=== PATIENT | male | born 1990 | race Caucasian/White ===

== ENCOUNTER → 2018-06-07 | Outpatient (CLI) | payer OTHER ==
[~2018-06-07] MED LIST: LISI-362 PO
[2018-06-07 14:10] LABS: PLATELET COUNT, AUTOMATED 312 K/uL (150-450)
[2018-06-07 14:31] LABS: LDL CHOLESTEROL 101 mg/dl
== END ==
LOC: LAB 13:35
PROVIDERS: ATTEND Internal Medicine
DX: I10 Essential (primary) hypertension (principal); E66.9 Obesity, unspecified
CPT/HCPCS: 36415; 81001; 82040; 82247; 82310; 82374; 82435; 82465; 82565; 82947; 83718; 84075; 84132; 84155; 84295; 84443; 84450; 84460; 84478; 84520; 85025

== ENCOUNTER → 2018-07-26 | Outpatient (CLI) | payer OTHER ==
[~2018-07-26] MED LIST changes: +VALS160T8 PO; +VALS1TAB4 PO
== END ==
LOC: RESP 20:00
PROVIDERS: ATTEND Internal Medicine
DX: G47.33 Obstructive sleep apnea (adult) (pediatric) (principal)

== ENCOUNTER → 2018-08-23 | Outpatient (CLI) | payer OTHER | LOC: RESP 20:02 | PROVIDERS: ATTEND Internal Medicine | DX: G47.33 Obstructive sleep apnea (adult) (pediatric) (principal) ==

== ENCOUNTER → 2018-09-18 | Outpatient (CLI) | payer OTHER ==
[~2018-09-18] MED LIST changes: +ALLO-119 PO; +AMLO-127 PO; +COLC0.6C3 PO; +VALS320T12 PO
[2018-09-18 16:39] LABS: PLATELET COUNT, AUTOMATED 259 K/uL (150-450)
== END ==
LOC: LAB 16:21
PROVIDERS: ATTEND Internal Medicine
DX: R94.5 Abnormal results of liver function studies (principal); I10 Essential (primary) hypertension; G47.33 Obstructive sleep apnea (adult) (pediatric); E66.9 Obesity, unspecified
CPT/HCPCS: 36415; 80074; 82040; 82247; 82310; 82374; 82435; 82565; 82728; 82947; 83540; 83550; 84075; 84132; 84155; 84295; 84443; 84450; 84460; 84520; 84550; 85025; 86038

== ENCOUNTER → 2018-09-28 | Outpatient (CLI) | payer OTHER ==
--- NOTE | 2018-09-28 10:56 | RADIOLOGY IMAGING REPORT ---
FACILITY: [facility] - [place] PATIENT NAME: Damian Garcia : 1990 MR: [id number] V: [id number] EXAM DATE: ORDERING PHYSICIAN: ROBERTA CLARKE TECHNOLOGIST: [place] [facility] [place]: Damian Garcia : 1990 Visit/Account:[id number] Date of Sevice: 09/28/2018 EXAMINATION: Abdominal ultrasound complete HISTORY: Elevated LFTs COMPARISON: None. FINDINGS: Gallbladder: No stones, wall thickening, pericholecystic fluid or sonographic Cotton sign. Liver: Liver is enlarged measuring 23 cm in length. There is diffuse increased echogenicity througho ut liver which can be seen with fatty infiltration or other infiltrative process. Common duct: Normal measuring 3.5 mm. Pancreas: Negative. Spleen: Normal in size and echogenicity measuring 12.3 cm in length. Kidneys: There Is a slightly lobular contour to both kidneys which may be related to lobulatio n, the right measures 10.8 cm in length, and the left 3.1 cm. No hydronephrosis. Upper abdominal aorta and IVC: Negative. Ascites: None. IMPRESSION: Hepatomegaly with increased echogenicity throughout liver which can be seen with fatty infiltration o r other infiltrative process Report Dictated By: Kathy Gaines MD at 09/28/2018 10:49 AM Report E-Signed By: Kathy Gaines MD at 09/28/2018 10:51 AM WSN:[id number]
== END ==
LOC: US 00:59
PROVIDERS: ATTEND Internal Medicine
DX: R16.0 Hepatomegaly, not elsewhere classified (principal)
CPT/HCPCS: 76700